=== PATIENT | male | born 1965 | race Caucasian/White ===

== ENCOUNTER 2022-02-23 19:26 | Inpatient (IN) | payer MEDICAID, OTHER ==
[~2022-02-23] VITALS: Ht 182.9 cm; Wt 86.4 kg
[2022-02-23] MEDS ORDERED: acetaminophen 325mg tablet PO ONE (19:55)
[2022-02-23] MEDS ORDERED: ondansetron/PF 4mg/2ml inj ONE (20:02)
[2022-02-23] MEDS ORDERED: normal saline 1000ml 1,000 ML IV ONE (20:05)
[2022-02-23] MEDS ORDERED: aspirin 81mg tab.chew PO ONE (20:05)
[2022-02-23] MEDS ORDERED: normal saline 1000ML IV soln IVB ONE (20:05)
[2022-02-23 20:16] LABS: BASOPHILS % (AUTO) 0.3 % (0-1); EOSINOPHILS # (AUTO) 0.1 X10'3 (0-0.9); EOSINOPHILS % (AUTO) 0.8 % (0-6); HEMATOCRIT 44.3 % (42.0-52.0); HEMOGLOBIN 15.3 g/dl (14.0-17.9); LYMPHOCYTES # (AUTO) 0.9 X10'3 (1.1-4.8); LYMPHOCYTES % (AUTO) 8.3 % (21-51); MEAN CORPUSCULAR HEMOGLOBIN 31.8 PG (27.0-31.0); MEAN CORPUSCULAR HGB CONC 34.5 g/dL (33.0-36.5); MEAN PLATELET VOLUME 10.1 FL (7.4-10.4); MONOCYTES # (AUTO) 0.4 X10'3 (0-0.9); MONOCYTES % (AUTO) 4.3 % (2-12); NEUTROPHILS # (AUTO) 8.9 X10'3 (1.8-7.7); NEUTROPHILS % (AUTO) 86.3 % (42-75); PLATELET COUNT 133 X10'3 (140-440); RED BLOOD COUNT 4.81 X10'6 (4.70-6.10); RED CELL DISTRIBUTION WIDTH 13.4 % (11.5-14.5); WHITE BLOOD COUNT 10.4 X10'3 (4.5-11.0)
[2022-02-23 20:40] LABS: ALANINE AMINOTRANSFERASE 55 U/L (12-78); ALBUMIN 3.2 G/DL (3.4-5.0); ALBUMIN/GLOBULIN RATIO 0.7 (1.1-1.5); ALKALINE PHOSPHATASE 104 IU/L (46-116); ANION GAP 12 (8-16); ASPARTATE AMINO TRANSFERASE 75 U/L (10-37); BILIRUBIN,TOTAL 1.4 MG/DL (0.1-1.0); BLOOD UREA NITROGEN 7 MG/DL (7-18); BUN/CREATININE RATIO 8.9 (5.4-32.0); CALCIUM 8.2 MG/DL (8.5-10.1); CHLORIDE 99 MMOL/L (99-107); CREATININE 0.79 MG/DL (0.60-1.10); GLUCOSE 128 MG/DL (70-104); SODIUM 132 MMOL/L (135-145); TOTAL PROTEIN 7.9 G/DL (6.4-8.2); eGFR > 90 ML/MIN
[2022-02-23 20:43] LABS: POTASSIUM 2.9 MMOL/L (3.5-5.1)
[2022-02-23 21:00] LABS: CLARITY,URINE CLEAR (Clear); COLOR,URINE YELLOW (Yellow); GLUCOSE, URINE 250 mg/dl (Neg); KETONES,URINE TRACE mg/dl (Neg); LEUKOCYTE ESTERASE ,URINE NEGATIVE (Neg); NITRITES, URINE NEGATIVE (Neg); OCCULT BLOOD,URINE NEGATIVE (Neg); PH,URINE 6.5 (4.8-8.0); PROTEIN,URINE TRACE mg/dl (Neg)
[2022-02-23] MEDS ORDERED: magnesium 2GM in 50ml NS 50 ML IV ONE (21:00)
[2022-02-23 21:04] LABS: TOTAL CELLS COUNTED 100
[2022-02-23 21:05] LABS: PLATELET ESTIMATE NORMAL
[2022-02-23 21:07] LABS: UA COLLECTION TYPE NON-SPECIFIED
[2022-02-23 21:09] LABS: RBC,URINE 0-2 /HPF (0-2); WBC,URINE NONE SEEN /HPF (0-4)
[2022-02-23 21:10] LABS: BACTERIA,URINE FEW /HPF (Neg); MUCUS STRANDS MODERATE /LPF (Neg); SQUAMOUS EPITHELIAL CELL,UR FEW /LPF (FEW)
[2022-02-23] MEDS ORDERED: LORazepam 2 mg/ml vial IV ONE (21:10)
[2022-02-23] MEDS ORDERED: potassium Cl 20 mEq SR tablet PO ONE (21:50)
[2022-02-23] MEDS: potassium CL 10mEq/100ml bag 100 ML IV SCH ×2 (22:29→23:40)
[2022-02-23] MEDS ORDERED: magnesium hydroxide 30ml (MOM) UD suspension PO PRN (23:20)
[2022-02-23] MEDS ORDERED: magnesium 2GM in 50ml NS 50 ML IV PRN (23:20)
[2022-02-23] MEDS ORDERED: ondansetron/PF 4mg/2ml inj IV PRN (23:20)
[2022-02-23] MEDS ORDERED: magnesium 4gm in 100ml NS 100 ML IV PRN (23:20)
[2022-02-23] MEDS ORDERED: acetaminophen 325mg tablet PO PRN (23:20)
[2022-02-23] MEDS ORDERED: mag hydrox/Alum hydrox/simeth 30ml oral suspension PO PRN (23:20)
[2022-02-23] MEDS ORDERED: POTASSIUM BICARB 20meq eff tab 20 MEQ TABLET.EFF PO PRN (23:20)
[2022-02-23] MEDS ORDERED: haloperidol lactate 5mg/ml inj IM PRN (23:20)
[2022-02-23] MEDS: normal saline 1000ml 1,000 ML IV SCH (23:42)
[2022-02-24] MEDS ORDERED: cefTRIAXone 1g/NS 100ml IVPB 100 ML IV ONE (01:05)
[2022-02-24 03:12] LABS: BASOPHILS # (AUTO) 0.1 X10'3 (0-0.2); BASOPHILS % (AUTO) 0.5 % (0-1); EOSINOPHILS % (AUTO) 0.1 % (0-6); HEMATOCRIT 41.4 % (42.0-52.0); HEMOGLOBIN 14.1 g/dl (14.0-17.9); LYMPHOCYTES # (AUTO) 1.5 X10'3 (1.1-4.8); LYMPHOCYTES % (AUTO) 12.8 % (21-51); MEAN CORPUSCULAR HEMOGLOBIN 31.7 PG (27.0-31.0); MEAN CORPUSCULAR VOLUME 93.2 FL (78-98); MEAN PLATELET VOLUME 10.1 FL (7.4-10.4); MONOCYTES # (AUTO) 1.3 X10'3 (0-0.9); MONOCYTES % (AUTO) 11.3 % (2-12); NEUTROPHILS # (AUTO) 8.9 X10'3 (1.8-7.7); NEUTROPHILS % (AUTO) 75.3 % (42-75); PLATELET COUNT 112 X10'3 (140-440); RED BLOOD COUNT 4.44 X10'6 (4.70-6.10); RED CELL DISTRIBUTION WIDTH 13.4 % (11.5-14.5); WHITE BLOOD COUNT 11.8 X10'3 (4.5-11.0)
[2022-02-24 03:23] LABS: ALANINE AMINOTRANSFERASE 44 U/L (12-78); ALBUMIN 2.5 G/DL (3.4-5.0); ALBUMIN/GLOBULIN RATIO 0.6 (1.1-1.5); ALKALINE PHOSPHATASE 79 IU/L (46-116); ANION GAP 7 (8-16); ASPARTATE AMINO TRANSFERASE 61 U/L (10-37); BILIRUBIN,TOTAL 1.5 MG/DL (0.1-1.0); BLOOD UREA NITROGEN 6 MG/DL (7-18); BUN/CREATININE RATIO 7.7 (5.4-32.0); CALCIUM 7.5 MG/DL (8.5-10.1); CHLORIDE 108 MMOL/L (99-107); CREATININE 0.78 MG/DL (0.60-1.10); GLUCOSE 114 MG/DL (70-104); LIPASE 143 U/L (73-393); PHOSPHORUS 2.7 MG/DL (2.3-4.5); POTASSIUM 3.7 MMOL/L (3.5-5.1); SODIUM 139 MMOL/L (135-145); TOTAL CARBON DIOXIDE 23.6 MMOL/L (24-32); TOTAL PROTEIN 6.6 G/DL (6.4-8.2); eGFR > 90 ML/MIN
[2022-02-24] MEDS: K and/or MAG REPLACEMENT MC SCH ×2 (08:00→20:00)
[2022-02-24] MEDS: docusate sod 100mg capsule PO SCH ×2 (08:00→20:00)
[2022-02-24] MEDS: normal saline 1000ml 1,000 ML IV SCH ×2 (09:20→19:20)
[2022-02-24] MEDS ORDERED: NO HOME MEDS (13:09)
--- NOTE | 2022-02-24 13:28 | NUR ---
Patient in room ED 14. I have received report from WANG MIRANDA and had the opportunity to ask questions and aWAITING PATIENT ARRIVAL
--- NOTE | 2022-02-24 13:41 | NUR ---
patient arrived to floor, orientated to room will continue to monitor
[2022-02-24 13:45] VITALS: BP 134/79
[2022-02-24 18:00] VITALS: BP 127/80
--- NOTE | 2022-02-24 18:15 | NUR ---
patient reluctant for RN skin check not wanting to remove jeans. stated he would shower later on. VSS. patient sleeping not wanting to be disturbed. appears stable at this time report given to Mikayla MIRANDA
[2022-02-24] MEDS: enoxaparin 40mg/0.4ml syringe SQ SCH (20:00)
[2022-02-24] MEDS: LORazepam 2 mg/ml vial IV PRN (21:36)
[2022-02-24 22:00] VITALS: BP 130/76
[2022-02-25] MEDS: cefTRIAXone 1g/NS 100ml IVPB 100 ML IV SCH (01:02)
[2022-02-25 02:00] VITALS: BP 112/68
[2022-02-25] MEDS: normal saline 1000ml 1,000 ML IV SCH ×2 (05:20→15:30)
[2022-02-25 06:00] VITALS: BP 139/83
[2022-02-25 06:48] LABS: BASOPHILS # (AUTO) 0.1 X10'3 (0-0.2); BASOPHILS % (AUTO) 1.1 % (0-1); EOSINOPHILS # (AUTO) 0.2 X10'3 (0-0.9); EOSINOPHILS % (AUTO) 3.1 % (0-6); HEMATOCRIT 41.4 % (42.0-52.0); HEMOGLOBIN 13.7 g/dl (14.0-17.9); LYMPHOCYTES # (AUTO) 1.4 X10'3 (1.1-4.8); LYMPHOCYTES % (AUTO) 24.5 % (21-51); MEAN CORPUSCULAR HGB CONC 33.1 g/dL (33.0-36.5); MEAN CORPUSCULAR VOLUME 93.4 FL (78-98); MEAN PLATELET VOLUME 10.9 FL (7.4-10.4); MONOCYTES # (AUTO) 0.9 X10'3 (0-0.9); MONOCYTES % (AUTO) 15.9 % (2-12); NEUTROPHILS # (AUTO) 3.2 X10'3 (1.8-7.7); NEUTROPHILS % (AUTO) 55.4 % (42-75); PLATELET COUNT 103 X10'3 (140-440); RED BLOOD COUNT 4.43 X10'6 (4.70-6.10); RED CELL DISTRIBUTION WIDTH 13.2 % (11.5-14.5); WHITE BLOOD COUNT 5.8 X10'3 (4.5-11.0)
[2022-02-25 06:51] LABS: ALANINE AMINOTRANSFERASE 51 U/L (12-78); ALBUMIN 2.1 G/DL (3.4-5.0); ALBUMIN/GLOBULIN RATIO 0.5 (1.1-1.5); ALKALINE PHOSPHATASE 75 IU/L (46-116); ANION GAP 7 (8-16); ASPARTATE AMINO TRANSFERASE 76 U/L (10-37); BILIRUBIN,TOTAL 0.7 MG/DL (0.1-1.0); BLOOD UREA NITROGEN 8 MG/DL (7-18); BUN/CREATININE RATIO 12.9 (5.4-32.0); CALCIUM 7.8 MG/DL (8.5-10.1); CHLORIDE 107 MMOL/L (99-107); CREATININE 0.62 MG/DL (0.60-1.10); GLUCOSE 87 MG/DL (70-104); LIPASE 264 U/L (73-393); MAGNESIUM 1.8 MG/DL (1.5-2.4); PHOSPHORUS 2.4 MG/DL (2.3-4.5); POTASSIUM 3.4 MMOL/L (3.5-5.1); SODIUM 136 MMOL/L (135-145); TOTAL CARBON DIOXIDE 22.1 MMOL/L (24-32); eGFR > 90 ML/MIN
[2022-02-25] MEDS: POTASSIUM BICARB 20meq eff tab 20 MEQ TABLET.EFF PO PRN ×2 (07:27→12:18)
[2022-02-25] MEDS: LORazepam 2 mg/ml vial IV PRN ×9 (07:27→22:05)
[2022-02-25 07:30] LABS: PLATELET ESTIMATE DECREASED; SMUDGE CELLS FEW; TOTAL CELLS COUNTED 100
[2022-02-25] MEDS: K and/or MAG REPLACEMENT MC SCH ×2 (07:40→22:30)
[2022-02-25] MEDS: docusate sod 100mg capsule PO SCH ×2 (07:40→18:59)
--- NOTE | 2022-02-25 08:42 | NUR ---
just lulu from pts room where I found patient in the bathroom and IV pole was laying down on the floor. He was covered in bowels. Cleaned him up and decided he needed a shower to get all of it off. VANESSA in room to assist in shower. PIV was pulled when pt ran into bathroom by himself. I will check the patency of the IV once he is out of the shower. Addendum: 02/25/22 at 1149 by Lila Santana RN Pt did not fall on the floor, he was sitting on the toilet.
[2022-02-25 11:00] VITALS: BP 129/74
--- NOTE | 2022-02-25 13:32 | NUR ---
pt refused 1200 blood sugar check
[2022-02-25 15:00] VITALS: BP 124/89
[2022-02-25] MEDS: haloperidol 5mg tablet PO PRN ×2 (15:23→20:11)
--- NOTE | 2022-02-25 15:30 | NUR ---
Pt was getting very anxious and was ready to leave AMA, he had his shoes on but still in gown and hospital pants still connected to NS. Was able to calm him, gave PO haldol and ativan IVP. Monitoring patient.
--- NOTE | 2022-02-25 17:30 | NUR ---
Pt is still refusing skin check
--- NOTE | 2022-02-25 17:37 | NUR ---
pt is getting agitated again. gave ativan
--- NOTE | 2022-02-25 17:39 | NUR ---
pt refusing blood sugar check: education provided, pt doesn't care
[2022-02-25 18:00] VITALS: BP 123/77
[2022-02-25] MEDS: enoxaparin 40mg/0.4ml syringe SQ SCH (20:00)
--- NOTE | 2022-02-25 21:00 | NUR ---
pt, blood sugar 64. Gave juice and snack
[2022-02-25] MEDS ORDERED: dextrose 50%-water 50ml dispensing syringe IV PRN (21:05)
[2022-02-25] MEDS ORDERED: LORazepam 2 mg/ml vial IV PRN (23:20)
[2022-02-25] MEDS ORDERED: LORazepam 1 MG tablet PO PRN (23:20)
[2022-02-26] MEDS: LORazepam 2 mg/ml vial IV PRN (00:39)
[2022-02-26] MEDS: cefTRIAXone 1g/NS 100ml IVPB 100 ML IV SCH (00:43)
[2022-02-26] MEDS: potassium CL 10mEq/100ml bag 100 ML IV PRN ×6 (00:49→04:45)
[2022-02-26] MEDS: haloperidol 5mg tablet PO PRN (01:19)
[2022-02-26 02:00] VITALS: BP 128/82
[2022-02-26] MEDS: normal saline 1000ml 1,000 ML IV SCH (04:00)
--- NOTE | 2022-02-26 04:00 | NUR ---
patient has been stating he wants to leave. Informed Dr. Strauss patient is too disoriented, unsteady on his feet to walk on his own. Sr. States if he does not agree to stay while impaired, he needs to be placed in restraints.
--- NOTE | 2022-02-26 05:45 | NUR ---
deferred AM labs until 0700. On potassium protocol, k draw should be scheduled for 0700.
--- NOTE | 2022-02-26 06:37 | NUR ---
Patient in room PCU 3026. I have received report from Mikayla MIRANDA and had the opportunity to ask questions and assume patient care. Patient is resting in bed in no acute distress.
[2022-02-26 07:00] VITALS: BP 101/60
[2022-02-26] MEDS: docusate sod 100mg capsule PO SCH (08:00)
[2022-02-26] MEDS: K and/or MAG REPLACEMENT MC SCH (08:00)
[2022-02-26 08:02] LABS: BASOPHILS # (AUTO) 0.1 X10'3 (0-0.2); BASOPHILS % (AUTO) 1.1 % (0-1); EOSINOPHILS # (AUTO) 0.2 X10'3 (0-0.9); EOSINOPHILS % (AUTO) 3.6 % (0-6); HEMATOCRIT 39.9 % (42.0-52.0); HEMOGLOBIN 13.5 g/dl (14.0-17.9); LYMPHOCYTES % (AUTO) 32.4 % (21-51); MEAN CORPUSCULAR HEMOGLOBIN 31.8 PG (27.0-31.0); MEAN CORPUSCULAR HGB CONC 33.7 g/dL (33.0-36.5); MEAN CORPUSCULAR VOLUME 94.4 FL (78-98); MONOCYTES % (AUTO) 16.7 % (2-12); NEUTROPHILS # (AUTO) 2.9 X10'3 (1.8-7.7); NEUTROPHILS % (AUTO) 46.2 % (42-75); PLATELET COUNT 136 X10'3 (140-440); RED BLOOD COUNT 4.23 X10'6 (4.70-6.10); RED CELL DISTRIBUTION WIDTH 13.3 % (11.5-14.5); WHITE BLOOD COUNT 6.3 X10'3 (4.5-11.0)
[2022-02-26 08:18] LABS: ALANINE AMINOTRANSFERASE 45 U/L (12-78); ALBUMIN 2.1 G/DL (3.4-5.0); ALBUMIN/GLOBULIN RATIO 0.6 (1.1-1.5); ALKALINE PHOSPHATASE 71 IU/L (46-116); ANION GAP 6 (8-16); ASPARTATE AMINO TRANSFERASE 62 U/L (10-37); BILIRUBIN,TOTAL 0.5 MG/DL (0.1-1.0); BLOOD UREA NITROGEN 6 MG/DL (7-18); BUN/CREATININE RATIO 11.1 (5.4-32.0); CALCIUM 7.9 MG/DL (8.5-10.1); CHLORIDE 108 MMOL/L (99-107); CREATININE 0.54 MG/DL (0.60-1.10); GLUCOSE 97 MG/DL (70-104); LIPASE 279 U/L (73-393); MAGNESIUM 1.7 MG/DL (1.5-2.4); PHOSPHORUS 3.6 MG/DL (2.3-4.5); SODIUM 136 MMOL/L (135-145); TOTAL CARBON DIOXIDE 22.4 MMOL/L (24-32); TOTAL PROTEIN 5.9 G/DL (6.4-8.2); eGFR > 90 ML/MIN
[2022-02-26 08:20] LABS: POTASSIUM 4.1 MMOL/L (3.5-5.1)
[2022-02-26 08:31] LABS: PLATELET ESTIMATE DECREASED; TOTAL CELLS COUNTED 100; TOXIC VACUOLATION FEW
--- NOTE | 2022-02-26 09:54 | NUR ---
Page Accepted promotional table spacer Message: [id number] Aure. Patient wants to leave [place] @00 Custom Responses: promotional table spacer Transaction number: [id number]
--- NOTE | 2022-02-26 11:48 | NUR ---
Patient left AMA - PIV removed with cannula intact. Patient educated about risks of leaving and danger to health and he verbalized understanding. An aid wheeled him outside . Patient was alert, and oriented at time of AMA.
[2022-02-27] MEDS ORDERED: LORazepam 1 MG tablet PO PRN (23:20)
[2022-02-27] MEDS ORDERED: LORazepam 2 mg/ml vial IV PRN (23:20)
== END 2022-02-26 11:43 | disposition left against medical advice (07) | DRG 720 ==
LOC: ER 19:27 → ED HOLD 23:25 → PCU 3S 02-24 13:37
PROVIDERS: ADMIT Family Medicine; ATTEND Internal Medicine
DX: A41.9 Sepsis, unspecified organism (principal); E87.1 Hypo-osmolality and hyponatremia; R07.89 Other chest pain; E87.6 Hypokalemia; F10.239 Alcohol dependence with withdrawal, unspecified; F15.10 Other stimulant abuse, uncomplicated; F17.210 Nicotine dependence, cigarettes, uncomplicated; Z53.29 Procedure and treatment not carried out because of patient's decision for other reasons; Z71.6 Tobacco abuse counseling; Z71.51 Drug abuse counseling and surveillance of drug abuser
CPT/HCPCS: 36415; 71045; 80053; 81001; 82948; 83605; 83690; 83735; 83880; 84100; 84145; 84484; 85007; 85025; 85610; 87040; 87081; 87502; 87503; 93005; 96361; 96365; 96375; 99285; A6258; G0378; J0696; J2060; J2405; J3475; J3480; J7030; J7040

== ENCOUNTER 2023-03-16 14:04 | Inpatient (IN) | payer MEDICAID ==
[~2023-03-16] VITALS: Ht 167.6 cm; Wt 86.1 kg
[~2023-03-16 14:04] MED LIST: NO HOME MEDS
[2023-03-16] MEDS ORDERED: piperacillin/tazo 3.375gm/50ml 50 ML IV ONE (14:35)
[2023-03-16] MEDS ORDERED: ondansetron/PF 4mg/2ml inj IV ONE (14:35)
[2023-03-16 14:39] LABS: BASOPHILS # (AUTO) 0.1 X10'3 (0-0.2); BASOPHILS % (AUTO) 1.1 % (0-1); EOSINOPHILS # (AUTO) 0.2 X10'3 (0-0.9); EOSINOPHILS % (AUTO) 2.1 % (0-6); HEMATOCRIT 38.4 % (42.0-52.0); HEMOGLOBIN 13.4 g/dl (14.0-17.9); LYMPHOCYTES # (AUTO) 3.4 X10'3 (1.1-4.8); LYMPHOCYTES % (AUTO) 45.4 % (21-51); MEAN CORPUSCULAR HGB CONC 34.9 g/dL (33.0-36.5); MEAN CORPUSCULAR VOLUME 91.6 FL (78-98); MEAN PLATELET VOLUME 9.8 FL (7.4-10.4); MONOCYTES # (AUTO) 0.7 X10'3 (0-0.9); MONOCYTES % (AUTO) 9.4 % (2-12); NEUTROPHILS # (AUTO) 3.1 X10'3 (1.8-7.7); PLATELET COUNT 177 X10'3 (140-440); RED CELL DISTRIBUTION WIDTH 13.8 % (11.5-14.5); WHITE BLOOD COUNT 7.4 X10'3 (4.5-11.0)
[2023-03-16 14:54] LABS: ALANINE AMINOTRANSFERASE 60 U/L (12-78); ALBUMIN 3.7 G/DL (3.4-5.0); ALKALINE PHOSPHATASE 100 IU/L (46-116); ANION GAP 13 (8-16); ASPARTATE AMINO TRANSFERASE 58 U/L (10-37); BILIRUBIN,TOTAL 0.4 MG/DL (0.1-1.0); BLOOD UREA NITROGEN 13 MG/DL (7-18); BUN/CREATININE RATIO 24.5 (10.0-20.0); CHLORIDE 107 MMOL/L (99-107); CREATININE 0.53 MG/DL (0.60-1.10); GLUCOSE 102 MG/DL (70-104); POTASSIUM 3.3 MMOL/L (3.5-5.1); SODIUM 139 MMOL/L (135-145); TOTAL CARBON DIOXIDE 19.1 MMOL/L (24-32); TOTAL PROTEIN 7.4 G/DL (6.4-8.2); eGFR > 90 ML/MIN
[2023-03-16] MEDS: morphine 4 MG/ML inj SYRINge IV PRN ×2 (14:55→15:43)
[2023-03-16 15:34] LABS: APTT 27 SECONDS (22-32)
[2023-03-16] MEDS ORDERED: [UNRECOGNIZED DRUG - OTHER] IV SCH ×2 (16:15)
[2023-03-16] MEDS ORDERED: NORMAL SALINE IV SCH ×2 (16:15)
[2023-03-16] MEDS ORDERED: [UNRECOGNIZED DRUG - OTHER] IV ONE ×2 (16:15)
[2023-03-16] MEDS ORDERED: NORMAL SALINE IV ONE ×2 (16:15)
[2023-03-16] MEDS ORDERED: fentaNYL/PF 50MCG/1 ML 2ML syringe IV ONE ×2 (16:25→20:25)
[2023-03-16] MEDS ORDERED: ACET-1084 PO (17:01)
--- NOTE | 2023-03-16 17:23 | NUR ---
Hand is 25cm around palm. Wrist 21 cm around
[2023-03-16] MEDS ORDERED: TETanus/Pertussis (Acell)/Diphther VAC/PF (Tdap-Adult) 0.5ml syringe IMVAC ONE (17:25)
--- NOTE | 2023-03-16 18:24 | NUR ---
assumed care from jillian quinteros.
--- NOTE | 2023-03-16 19:26 | NUR ---
PT REQUESTING TO LEAVE IF NOT PROVIDED WITH A DINNER TRAY. PT ALSO REQUESTING A ROOM UPSTAIRS AND DOES NOT WANT TO STAY IF HE HAS TO SPEND THE NIGHT IN THE EMERGENCY DEPARTMENT. CHARGE NURSE MARIXA NOTIFIED AND DR PADILLA AWARE. PT GIVEN REGULAR DINNER TRAY AND EXTRA TURKEY SANDWICH. PT REQUESIGN PAIN MEDICATION WELL.
--- NOTE | 2023-03-16 19:33 | NUR ---
re-measured right hand. at bite circumference on palm is 26.5cm. at wrist 21.5cm. at line distal to bite measures at 25cm.
--- NOTE | 2023-03-16 19:45 | NUR ---
REDNESS AND SWELLIGN INCREASING UP LEFT ARM BY 2.5CM. NEW LINE MARKED AND MEASURED AT 22CM IN CIRCUMFERENCE.
--- NOTE | 2023-03-16 19:51 | NUR ---
ATTEMPTING TO CALL POISON CONTROL WITH NEW MEASUREMENTS, CURRENTLY ON HOLD FOR PAST 5 MINUTES.
[2023-03-16 20:12] LABS: BASOPHILS # (AUTO) 0.1 X10'3 (0-0.2); BASOPHILS % (AUTO) 0.8 % (0-1); EOSINOPHILS # (AUTO) 0.1 X10'3 (0-0.9); EOSINOPHILS % (AUTO) 1.2 % (0-6); HEMATOCRIT 41.8 % (42.0-52.0); HEMOGLOBIN 13.9 g/dl (14.0-17.9); LYMPHOCYTES # (AUTO) 2.1 X10'3 (1.1-4.8); LYMPHOCYTES % (AUTO) 29.7 % (21-51); MEAN CORPUSCULAR HGB CONC 33.2 g/dL (33.0-36.5); MEAN CORPUSCULAR VOLUME 93.5 FL (78-98); MEAN PLATELET VOLUME 9.8 FL (7.4-10.4); MONOCYTES # (AUTO) 0.7 X10'3 (0-0.9); MONOCYTES % (AUTO) 10.1 % (2-12); NEUTROPHILS # (AUTO) 4.2 X10'3 (1.8-7.7); NEUTROPHILS % (AUTO) 58.2 % (42-75); PLATELET COUNT 157 X10'3 (140-440); RED BLOOD COUNT 4.47 X10'6 (4.70-6.10); RED CELL DISTRIBUTION WIDTH 13.6 % (11.5-14.5); WHITE BLOOD COUNT 7.2 X10'3 (4.5-11.0)
--- NOTE | 2023-03-16 20:23 | NUR ---
re-measured right hand. at bite circumference on palm is 27cm. at wrist 22cm. at line distal to bite measures at 25cm. dr su updated. per dr su, no need to update poison control at this time.
--- NOTE | 2023-03-16 21:22 | NUR ---
re-measured right hand. at bite circumference on palm is 27cm. at wrist 22cm. at line distal to bite measures at 25cm. dr su updated.
[2023-03-16 22:17] VITALS: BP 117/73
--- NOTE | 2023-03-16 22:30 | NUR ---
Circumference at bite: 25cm Circumference at wrist: 22cm
[2023-03-16 23:00] VITALS: BP 104/62
[2023-03-17] VITALS (15 sets, daily range): BP systolic 97–123; BP diastolic 55–78
--- NOTE | 2023-03-17 00:01 | NUR ---
Circumference at bite: 26cm Circumference at wrist: 21.5cm Distal: 21cm
--- NOTE | 2023-03-17 01:04 | NUR ---
Circumference at bite: 25cm Circumference at wrist: 21cm Distal: 21cm
[2023-03-17] MEDS: fentaNYL/PF 50MCG/1 ML 2ML syringe IV PRN ×2 (01:44→08:33)
[2023-03-17 02:05] LABS: BASOPHILS # (AUTO) 0.1 X10'3 (0-0.2); BASOPHILS % (AUTO) 1.2 % (0-1); EOSINOPHILS # (AUTO) 0.2 X10'3 (0-0.9); EOSINOPHILS % (AUTO) 2.7 % (0-6); HEMATOCRIT 40.4 % (42.0-52.0); HEMOGLOBIN 13.5 g/dl (14.0-17.9); LYMPHOCYTES # (AUTO) 2.4 X10'3 (1.1-4.8); LYMPHOCYTES % (AUTO) 35.6 % (21-51); MEAN CORPUSCULAR HEMOGLOBIN 31.2 PG (27.0-31.0); MEAN CORPUSCULAR HGB CONC 33.3 g/dL (33.0-36.5); MEAN CORPUSCULAR VOLUME 93.6 FL (78-98); MEAN PLATELET VOLUME 10.2 FL (7.4-10.4); MONOCYTES # (AUTO) 0.9 X10'3 (0-0.9); MONOCYTES % (AUTO) 12.7 % (2-12); NEUTROPHILS # (AUTO) 3.2 X10'3 (1.8-7.7); NEUTROPHILS % (AUTO) 47.8 % (42-75); PLATELET COUNT 143 X10'3 (140-440); RED BLOOD COUNT 4.32 X10'6 (4.70-6.10); RED CELL DISTRIBUTION WIDTH 13.6 % (11.5-14.5); WHITE BLOOD COUNT 6.7 X10'3 (4.5-11.0)
--- NOTE | 2023-03-17 03:11 | NUR ---
Circumference at bite: 25cm Circumference at wrist: 21.5 cm Distal: 21cm
--- NOTE | 2023-03-17 05:41 | NUR ---
Circumference at bite: 25cm Circumference at wrist: 21.5 cm Distal: 21cm CSM intact with some limitation on mobility d/t swelling and pain. Cap refill <3sec
--- NOTE | 2023-03-17 08:00 | NUR ---
Right hand circumference at bite site 25cm, at right wrist 21 cm. Pt is complaining that right fore arm is becoming increasingly edematous. Right forearm is more edematous than left fore arm. No baseline measurement was taken previously. Measured 28 cm circumference mid right forearm and marked measurement site.
[2023-03-17] MEDS ORDERED: HYDROmorphone inj. 0.5 MG/0.5 ML DISP.SYRIN IV PRN (10:55)
[2023-03-17] MEDS ORDERED: HYDROmorphone 1 mg/ml syringe IV PRN (10:55)
--- NOTE | 2023-03-17 11:00 | NUR ---
Right hand circumference at bite site 25cm, at right wrist 21 cm, at mid right forearm 28cm.
[2023-03-17] MEDS ORDERED: HYDR-3965 PO (12:16)
--- NOTE | 2023-03-17 13:00 | NUR ---
Right hand circumference at bite site 25cm, at right wrist 21 cm, at mid right forearm 28cm.
[2023-03-17 13:52] LABS: HEMOGLOBIN 13.9 g/dl (14.0-17.9)
[2023-03-17 13:54] LABS: BASOPHILS % (AUTO) 0.6 % (0-1); EOSINOPHILS # (AUTO) 0.1 X10'3 (0-0.9); EOSINOPHILS % (AUTO) 2.3 % (0-6); HEMATOCRIT 41.5 % (42.0-52.0); LYMPHOCYTES % (AUTO) 33.4 % (21-51); MEAN CORPUSCULAR HEMOGLOBIN 31.5 PG (27.0-31.0); MEAN CORPUSCULAR HGB CONC 33.5 g/dL (33.0-36.5); MEAN PLATELET VOLUME 10.7 FL (7.4-10.4); MONOCYTES # (AUTO) 0.8 X10'3 (0-0.9); MONOCYTES % (AUTO) 13.3 % (2-12); NEUTROPHILS # (AUTO) 3.1 X10'3 (1.8-7.7); NEUTROPHILS % (AUTO) 50.4 % (42-75); PLATELET COUNT 151 X10'3 (140-440); RED BLOOD COUNT 4.42 X10'6 (4.70-6.10); RED CELL DISTRIBUTION WIDTH 13.6 % (11.5-14.5); WHITE BLOOD COUNT 6.1 X10'3 (4.5-11.0)
--- NOTE | 2023-03-17 15:00 | NUR ---
Right hand circumference at bite site 25cm, at right wrist 21 cm, at mid right forearm 28cm.
--- NOTE | 2023-03-17 17:05 | NUR ---
Pt discharged home via [facility] [employer]. He obtained his personal belongings from admitting safe.
== END 2023-03-17 17:02 | disposition home or self-care (01) | DRG 816 ==
LOC: ER 14:05 → ED HOLD 19:45 → ICU 2S 22:00
PROVIDERS: ADMIT Internal Medicine Critical Care Medicine; ATTEND Internal Medicine Critical Care Medicine
PROC: 3E0234Z Introduction of Serum, Toxoid and Vaccine into Muscle, Percutaneous Approach (ICD-10-PCS; principal; 2023-03-16)
DX: T63.011A Toxic effect of rattlesnake venom, accidental (unintentional), initial encounter (principal); D69.6 Thrombocytopenia, unspecified; F17.210 Nicotine dependence, cigarettes, uncomplicated; F10.10 Alcohol abuse, uncomplicated; M25.431 Effusion, right wrist; Z23 Encounter for immunization; Y92.89 Other specified places as the place of occurrence of the external cause; Z79.899 Other long term (current) drug therapy
CPT/HCPCS: 36415; 80053; 85025; 85384; 85610; 85730; 87081; 90471; 90715; 96365; 96367; 96375; 99291; 99292; A6213; G0378; J0840; J1170; J2270; J2405; J2543; J3010; J7030; J7050

== ENCOUNTER 2023-03-19 16:30 | Emergency (ER) | payer MEDICAID ==
[~2023-03-19] VITALS: Ht 185.4 cm; Wt 97.7 kg
[~2023-03-19 16:30] MED LIST changes: +ACET-1084 PO; +HYDR-3965 PO; -NO HOME MEDS
[2023-03-19 16:39] VITALS: BP 135/81
[2023-03-19] MEDS ORDERED: HYDROcodone/acetaminophen 5mg/325mg tablet PO ONE (18:50)
[2023-03-19] MEDS ORDERED: HYDR-3965 PO (19:12)
== END 2023-03-19 19:22 | disposition home or self-care (01) ==
LOC: ER 16:31
DX: S50.11XA Contusion of right forearm, initial encounter (principal); Z72.89 Other problems related to lifestyle; Z79.899 Other long term (current) drug therapy; X58.XXXA Exposure to other specified factors, initial encounter; Y93.89 Activity, other specified; Y92.89 Other specified places as the place of occurrence of the external cause; Y99.8 Other external cause status
CPT/HCPCS: 99283